=== PATIENT | male | born 1995 | race Caucasian/White ===

== ENCOUNTER 2016-11-04 08:38 | Emergency (ER) | payer OTHER ==
[2016-11-04] MEDS ORDERED: KETOROLAC 30 MG/ML VIAL (J1885) As Ordered ONE (09:09)
--- NOTE | 2016-11-04 10:35 | EDDOCDS ---
Physician Documentation [facility] Name: Tariq Diamond Age: 21 yrs Sex: Male : 1995 Arrival Date: 11/04/2016 Time: 08:38 Bed U3 Private MD: Disposition: 11/04 09:57 Critical Care: Critical care not applicable. pc Disposition: 11/04/16 09:59 Discharged to Home/Self Care. Impression: Opioid abuse, Other stimulant abuse, Dental caries - with pain. - Condition is Stable. - Discharge Instructions: Dental Pain. - Prescriptions for ketorolac 10 mg Oral Tablet - take 1 tablet by ORAL route every 6 hours As needed MDD- 40mg. Up to 5 days total use.; 20 tablet. - Medication Reconciliation, Local Pharmacy Hours form. - Follow up: Referral list, As provided by PFS; When: Call to arrange an appointment; Reason: To establish care. Follow up: Your, Dentist; When: Call to arrange an appointment; Reason: Recheck today's complaints. - Problem is an ongoing problem. - Symptoms have improved. HPI: 09:08 This 21 yrs old Male presents to ER via Walkin/Carried/Asstd with complaints pc of Psych Problem. 09:08 The history is obtained from the patient. He has right sided dental pain for 2-3 weeks, pc worse since last night. He is an admitted heroin and "florin" abuser, last used last night. He told triage that he'd kill himself if he didn't get relief for his dental pain. He denies any SI or HI, simply states he can't deal with the dental pain. He has not seen a dentist in many years. The patient has not recently seen a physician. Historical: - Allergies: No known drug Allergies; - Home Meds: 1. none - PMHx: Substance Abuse; - PSHx: none; - The history from nurses notes was reviewed: and I agree with what is documented. - Social history: Smoking status: Patient uses tobacco products, heavy tobacco smoker. No barriers to communication noted, The patient speaks fluent Kinyarwanda. - : The pt / caregiver states he / she is not on anticoagulants. Home medication list is obtained from the patient. - Hospitalizations: : No recent hospitalization is reported. - Exposure Risk Screening:: None identified. - Immunization history:: All immunizations up-to-date. - Family history: Not pertinent. - Social history:: the patient smokes cigarettes the patient drinks alcohol, the patient uses illicit drugs, including heroin, opiates, amphetamines . ROS: 09:08 All systems are negative except as listed. pc Exam: 09:08 General Appearance: no acute distress, alert, lying on right side, resting. Requests pc cold drink of water upon my entering room. 09:08 EENT: normal eye inspection, ears, nose and throat normal, dental exam: multiple fillings noted. No gingival edema or erythema noted. Pain on percussion of left lower and upper molars without dental fractures or decay noted. 09:08 Psych: normal mood, affect is appropriate. Vital Signs: 08:55 BP 156 / 97; Pulse 94; Resp 18; Temp 98.6(T); Pulse Ox 97% on R/A; Weight 68.04 kg / dpm 150 lbs (R); Height 6 ft. 0 in. (182.88 cm) (R); Pain 10/10; 08:55 Body Mass Index 20.34 (68.04 kg, 182.88 cm) dpm MDM: 09:08 ketorolac 60 mg IM once ordered. pc 09:13 Differential Diagnosis: dental pain; polysubstance abuse. Plan: meds, PFS eval. pc 09:39 Financial registration complete. lg 09:57 Data reviewed: old medical records, vital signs, nurses notes. Test interpretation: pc none. The patient has been re-examined and re-evaluated. The patient's symptoms have mildly improved after treatment. Disposition: The historical points, examination findings, and any diagnostic results supporting the provided diagnosis, were discussed with the patient or legal guardian. The need for outpatient follow up with the provider listed on their discharge instructions was discussed. They were encouraged to return to [facility], or the nearest ED, if symptoms worsen/persist, or for any other questions/concerns. 09:57 Other consultation: The ED new car make ready worker was notified and will evaluate the patient. pc 09:59 PSA Outpatient Referrals was scanned into [employer] and attached to record. rb Administered Medications: 09:19 Drug: ketorolac 60 mg [ketorolac 30 mg/mL (1 mL) injection solution (2 mL)] Route: IM; ml6 Site: right gluteus; 10:33 Follow up: Response: Pain is decreased ml6 Signatures: Diogo Mcwilliams MD MD pc Sleeman, Kacey, RN RN kcs Oly Patel, PSA PSA rb Rosy Obrien, Osito Reg Shiv Frank RN RN ml6 The chart was reviewed and I authenticate all verbal orders and agree with the evaluation and treatment provided.Corrections: (The following items were deleted from the chart) 09:45 08:49 PMHx: none; edgard ml6 MTDD
--- NOTE | 2016-11-04 10:35 | EDDOCDS ---
Nurse's Notes [facility] Name: Tariq Diamond Age: 21 yrs Sex: Male : 1995 Arrival Date: 11/04/2016 Time: 08:[address] MD: Diagnosis: Opioid abuse;Other stimulant abuse;Dental caries-with pain Presentation: 11/04 08:46 Presenting complaint: Patient states: he is "really dope sick and if he doesn't get any kcs help he will kill himself. "I need some oragel for this fucking toothache" - explained the doctor would order meds and then states 'you need to give me something for this fucking toothache for comfort" - explained again that the doctor would order the meds. Mental Health Triage Level: Level 2: The patient displays active suicidal ideations. Adult Sepsis Screening: The patient does not have new or worsening altered mentation. Patient's respiratory rate is less than 22. Systolic blood pressure is greater than 100. Patient has a qSOFA score of 0- Negative Sepsis Screen. Suicide/Homicide risk assessment- The patient admits to and/or has been reported to be having suicidal ideations. The patient reports that he/she has not been admitted to an inpatient mental health facility in the last 30 days. The patient reports that he/she has a recent or current history of substance abuse. The patient reports that he/she has no prior history of suicide attempt and/or organized plan. The patient reports that he/she has experienced a significant life altering event in the last 30 days. The patient reports that he/she lacks adequate social support. The patient reports he/she has no significant chronic medical condition(s). Status: Patient is not a marine services technician or dependent. Transition of care: patient was not received from another setting of care. Red Flag criteria, patient assessed and taken directly to a bed. 08:46 Acuity: LINDSEY Level 3 kcs 08:46 Method Of Arrival: Walkin/Carried/Asstd kcs Triage Assessment: 08:49 General: Appears slender, unkempt, well developed, well nourished, Behavior is kcs agitated, anxious, restless. Pain: Location: mouth Pain currently is 10 out of 10 on a pain scale. Pt Declines HIV testing. The patient is triaged at the bedside. See Assessment in Nurses Notes section of ED record. Neurological: Level of Consciousness is awake, alert. Respiratory: Airway is patent Respiratory effort is even, unlabored, Respiratory pattern is regular, symmetrical. Derm: Skin is intact, is healthy with good turgor, Skin is dry, Skin is normal. Historical: - Allergies: No known drug Allergies; - Home Meds: 1. none - PMHx: Substance Abuse; - PSHx: none; - The history from nurses notes was reviewed: and I agree with what is documented. - Social history: Smoking status: Patient uses tobacco products, heavy tobacco smoker. No barriers to communication noted, The patient speaks fluent Romansh. - : The pt / caregiver states he / she is not on anticoagulants. Home medication list is obtained from the patient. - Hospitalizations: : No recent hospitalization is reported. - Exposure Risk Screening:: None identified. - Immunization history:: All immunizations up-to-date. - Family history: Not pertinent. - Social history:: the patient smokes cigarettes the patient drinks alcohol, the patient uses illicit drugs, including heroin, opiates, amphetamines . Screenin:45 Screening information is obtained from the patient. Fall risk: No risks identified. ml6 Assistance ADL's: requires no assistance with activities of daily living. Abuse/DV Screen: The patient / caregiver reports he/she is: not in a situation that causes fear, pain or injury. Nutritional screening: No deficits noted. Advance Directives: Currently, there is no health care proxy. home support is adequate. Assessment: 08:48 General: Appears Behavior is anxious, appropriate for age. General: patient has large ml6 amount of scaring from IV drug use down both forearms. Pain: Location: mouth Pain currently is 10 out of 10 on a pain scale. Pain does not radiate. Quality of pain is described as aching, Pain began 2-3 days ago Is continuous Alleviated by nothing. Aggravated by increased activity. Cardiovascular: No deficits noted. Capillary refill < 3 seconds is brisk in bilateral fingers toes Heart tones S1 S2 present Edema is absent. Pulses are all present. Respiratory: No deficits noted. Airway is patent Respiratory effort is even, unlabored. GI: No deficits noted. Abdomen is flat, non- distended Bowel sounds present X 4 quads. 09:45 Reassessment: Patient appears in no apparent distress at this time. Patient denies pain ml6 at this time. Patient states feeling better. Patient states symptoms have improved. 10:31 General: Appears in no apparent distress, Behavior is appropriate for age, cooperative. ml6 Pain: Denies pain. Neurological: No deficits noted. Level of Consciousness is awake, alert, Oriented to person, place, time. Cardiovascular: No deficits noted. Capillary refill < 3 seconds is brisk in bilateral fingers toes Heart tones S1 S2 present. Respiratory: No deficits noted. Airway is patent Respiratory effort is even, unlabored, Respiratory pattern is regular, symmetrical. GI: No deficits noted. Abdomen is flat, non- distended Bowel sounds present X 4 quads. Social Work Consult: 10:02 Social Work Note: Pt presented to Ed looking for detox and had tooth pain. Pt reported rb "I'm an addict", clean for 8 months , using Meth, Heroin, Jeannie, etc. over the last couple months. Pt denies SI/HI at this time. Pt has no prior MH hx. Pt stated was in rehab \\\\ [facility] 03/30/16, and went to [facility] outpt . Pt reported plans to return to [facility]. Pt lives with Roommates. Gave referrals for Dental and Substance abuse. Pt happy with referrals. No further interventions needed at this time. Vital Signs: 08:55 BP 156 / 97; Pulse 94; Resp 18; Temp 98.6(T); Pulse Ox 97% on R/A; Weight 68.04 kg (R); dpm Height 6 ft. 0 in. (182.88 cm) (R); Pain 10/10; 08:55 Body Mass Index 20.34 (68.04 kg, 182.88 cm) dpm Vitals: 08:49 Log In Time: November 04, 2016 at 08:38. kcs ED Course: 08:40 Patient visited by Rosy Obrien Reg. lg 08:40 Patient moved to Waiting lg 08:42 Patient moved to [facility] dpm 08:49 Triage Initiated kcs 08:50 Pt greeted and oriented to ED. Patient advised of names of staff involved in care, dpm location of call sharif, wait times and NPO status. Patient has correct armband on for positive identification. Placed in gown. Placed in psych safe attire. Security observing. Property removed, inventory done, secured in belongings bag- placed in locked locker. Placed in locker 3. Psych Safety Check: Location: Psych Room. Visual Assessment: Cooperative. 08:51 Diogo Mcwilliams MD is Attending Physician. pc 08:53 Patient insulin needle in patient's possession disposed of. kcs 08:54 Patient visited by Hernandez Goncalves. dpm 09:08 Patient visited by Diogo Mcwilliams MD. pc 09:28 Patient visited by Hernandez Goncalves. dpm 09:45 Patient visited by Hernandez Goncalves. dpm 09:45 The patient / caregiver is instructed regarding the plan of care and ED course. ml6 09:59 Referral list, As provided by PFS is Referral Physician. pc 09:59 Your, Dentist is Referral Physician. pc 09:59 PSA Outpatient Referrals was scanned into [employer] and attached to record. rb 10:22 Patient visited by Hernandez Goncalves. dpm 10:32 No IV's were initiated during this patient's visit. No procedures done that require ml6 assistance. Administered Medications: 09:19 Drug: ketorolac 60 mg [ketorolac 30 mg/mL (1 mL) injection solution (2 mL)] Route: IM; ml6 Site: right gluteus; 10:33 Follow up: Response: Pain is decreased ml6 Order Results: There are currently no results for this order. Outcome: 09:59 Discharge ordered by Provider. pc 10:32 Discharge Assessment: patient administered narcotics - no. The following High Risk ml6 Discharge criteria are identified: None. Discharged to home ambulatory. Condition: improved. Discharge instructions given to patient, Instructed on discharge instructions, follow up and referral plans. medication usage, Demonstrated understanding of instructions, medications, Pt was receptive of discharge instructions/ teaching. Prescriptions given X 1. No special radiology studies were completed. 10:33 Patient left the ED. ml6 Signatures: Diogo Mcwilliams MD MD pc Sleeman, Kacey, RN RN kcs Oly Patel, PSA PSA rb Rosy Obrien, Reg Reg Shiv Frank RN RN ml6 Hernandez Goncalves dpm Corrections: (The following items were deleted from the chart) 09:45 08:49 PMHx: none; edgard ml6 MTDD
--- NOTE | 2016-11-06 11:34 | EDDOCDS ---
Nurse's Notes [facility] Name: Tariq Diamond Age: 21 yrs Sex: Male : 1995 Arrival Date: 11/04/2016 Time: 08:[address] MD: Diagnosis: Opioid abuse;Other stimulant abuse;Dental caries-with pain Presentation: 11/04 08:46 Presenting complaint: Patient states: he is "really dope sick and if he doesn't get any kcs help he will kill himself. "I need some oragel for this fucking toothache" - explained the doctor would order meds and then states 'you need to give me something for this fucking toothache for comfort" - explained again that the doctor would order the meds. Mental Health Triage Level: Level 2: The patient displays active suicidal ideations. Adult Sepsis Screening: The patient does not have new or worsening altered mentation. Patient's respiratory rate is less than 22. Systolic blood pressure is greater than 100. Patient has a qSOFA score of 0- Negative Sepsis Screen. Suicide/Homicide risk assessment- The patient admits to and/or has been reported to be having suicidal ideations. The patient reports that he/she has not been admitted to an inpatient mental health facility in the last 30 days. The patient reports that he/she has a recent or current history of substance abuse. The patient reports that he/she has no prior history of suicide attempt and/or organized plan. The patient reports that he/she has experienced a significant life altering event in the last 30 days. The patient reports that he/she lacks adequate social support. The patient reports he/she has no significant chronic medical condition(s). Status: Patient is not a it service continuity supervisor or dependent. Transition of care: patient was not received from another setting of care. Red Flag criteria, patient assessed and taken directly to a bed. 08:46 Acuity: LINDSEY Level 3 kcs 08:46 Method Of Arrival: Walkin/Carried/Asstd kcs Triage Assessment: 08:49 General: Appears slender, unkempt, well developed, well nourished, Behavior is kcs agitated, anxious, restless. Pain: Location: mouth Pain currently is 10 out of 10 on a pain scale. Pt Declines HIV testing. The patient is triaged at the bedside. See Assessment in Nurses Notes section of ED record. Neurological: Level of Consciousness is awake, alert. Respiratory: Airway is patent Respiratory effort is even, unlabored, Respiratory pattern is regular, symmetrical. Derm: Skin is intact, is healthy with good turgor, Skin is dry, Skin is normal. Historical: - Allergies: No known drug Allergies; - Home Meds: 1. none - PMHx: Substance Abuse; - PSHx: none; - The history from nurses notes was reviewed: and I agree with what is documented. - Social history: Smoking status: Patient uses tobacco products, heavy tobacco smoker. No barriers to communication noted, The patient speaks fluent Divehi. - : The pt / caregiver states he / she is not on anticoagulants. Home medication list is obtained from the patient. - Hospitalizations: : No recent hospitalization is reported. - Exposure Risk Screening:: None identified. - Immunization history:: All immunizations up-to-date. - Family history: Not pertinent. - Social history:: the patient smokes cigarettes the patient drinks alcohol, the patient uses illicit drugs, including heroin, opiates, amphetamines . Screenin:45 Screening information is obtained from the patient. Fall risk: No risks identified. ml6 Assistance ADL's: requires no assistance with activities of daily living. Abuse/DV Screen: The patient / caregiver reports he/she is: not in a situation that causes fear, pain or injury. Nutritional screening: No deficits noted. Advance Directives: Currently, there is no health care proxy. home support is adequate. Assessment: 08:48 General: Appears Behavior is anxious, appropriate for age. General: patient has large ml6 amount of scaring from IV drug use down both forearms. Pain: Location: mouth Pain currently is 10 out of 10 on a pain scale. Pain does not radiate. Quality of pain is described as aching, Pain began 2-3 days ago Is continuous Alleviated by nothing. Aggravated by increased activity. Cardiovascular: No deficits noted. Capillary refill < 3 seconds is brisk in bilateral fingers toes Heart tones S1 S2 present Edema is absent. Pulses are all present. Respiratory: No deficits noted. Airway is patent Respiratory effort is even, unlabored. GI: No deficits noted. Abdomen is flat, non- distended Bowel sounds present X 4 quads. 09:45 Reassessment: Patient appears in no apparent distress at this time. Patient denies pain ml6 at this time. Patient states feeling better. Patient states symptoms have improved. 10:31 General: Appears in no apparent distress, Behavior is appropriate for age, cooperative. ml6 Pain: Denies pain. Neurological: No deficits noted. Level of Consciousness is awake, alert, Oriented to person, place, time. Cardiovascular: No deficits noted. Capillary refill < 3 seconds is brisk in bilateral fingers toes Heart tones S1 S2 present. Respiratory: No deficits noted. Airway is patent Respiratory effort is even, unlabored, Respiratory pattern is regular, symmetrical. GI: No deficits noted. Abdomen is flat, non- distended Bowel sounds present X 4 quads. Social Work Consult: 10:02 Social Work Note: Pt presented to Ed looking for detox and had tooth pain. Pt reported rb "I'm an addict", clean for 8 months , using Meth, Heroin, Jeannie, etc. over the last couple months. Pt denies SI/HI at this time. Pt has no prior MH hx. Pt stated was in rehab \\\\ [facility] 03/30/16, and went to [facility] outpt . Pt reported plans to return to [facility]. Pt lives with Roommates. Gave referrals for Dental and Substance abuse. Pt happy with referrals. No further interventions needed at this time. Vital Signs: 08:55 BP 156 / 97; Pulse 94; Resp 18; Temp 98.6(T); Pulse Ox 97% on R/A; Weight 68.04 kg (R); dpm Height 6 ft. 0 in. (182.88 cm) (R); Pain 10/10; 08:55 Body Mass Index 20.34 (68.04 kg, 182.88 cm) dpm Vitals: 08:49 Log In Time: November 04, 2016 at 08:38. kcs ED Course: 08:40 Patient visited by Rosy Obrien Reg. lg 08:40 Patient moved to Waiting lg 08:42 Patient moved to [facility] dpm 08:49 Triage Initiated kcs 08:50 Pt greeted and oriented to ED. Patient advised of names of staff involved in care, dpm location of call sharif, wait times and NPO status. Patient has correct armband on for positive identification. Placed in gown. Placed in psych safe attire. Security observing. Property removed, inventory done, secured in belongings bag- placed in locked locker. Placed in locker 3. Psych Safety Check: Location: Psych Room. Visual Assessment: Cooperative. 08:51 Diogo Mcwilliams MD is Attending Physician. pc 08:53 Patient insulin needle in patient's possession disposed of. kcs 08:54 Patient visited by Hernandez Goncalves. dpm 09:08 Patient visited by Diogo Mcwilliams MD. pc 09:28 Patient visited by Hernandez Goncalves. dpm 09:45 Patient visited by Hernandez Goncalves. dpm 09:45 The patient / caregiver is instructed regarding the plan of care and ED course. ml6 09:59 Referral list, As provided by PFS is Referral Physician. pc 09:59 Your, Dentist is Referral Physician. pc 09:59 PSA Outpatient Referrals was scanned into [employer] and attached to record. rb 10:22 Patient visited by Hernandez Goncalves. dpm 10:32 No IV's were initiated during this patient's visit. No procedures done that require ml6 assistance. 10:52 [facility] Payment Agreement was scanned into [employer] and attached to record. lg Administered Medications: 09:19 Drug: ketorolac 60 mg [ketorolac 30 mg/mL (1 mL) injection solution (2 mL)] Route: IM; ml6 Site: right gluteus; 10:33 Follow up: Response: Pain is decreased ml6 Order Results: There are currently no results for this order. Outcome: 09:59 Discharge ordered by Provider. pc 10:32 Discharge Assessment: patient administered narcotics - no. The following High Risk ml6 Discharge criteria are identified: None. Discharged to home ambulatory. Condition: improved. Discharge instructions given to patient, Instructed on discharge instructions, follow up and referral plans. medication usage, Demonstrated understanding of instructions, medications, Pt was receptive of discharge instructions/ teaching. Prescriptions given X 1. No special radiology studies were completed. 10:33 Patient left the ED. ml6 Signatures: Diogo Mcwilliams MD MD pc Sleeman, Kacey, RN RN kcs Patel, Oly, PSA PSA rb Rosy Obrien, Reg Reg lg Shiv Barksdale RN RN ml6 Hernandez Goncalves dpm Corrections: (The following items were deleted from the chart) 09:45 08:49 PMHx: none; kcs ml6 Chart Complete MTDD
--- NOTE | 2016-11-06 11:34 | EDDOCDS ---
Physician Documentation [facility] Name: Tariq Diamond Age: 21 yrs Sex: Male : 1995 Arrival Date: 11/04/2016 Time: 08:38 Bed U3 Private MD: Disposition: 11/04 09:57 Critical Care: Critical care not applicable. pc Disposition: 11/04/16 09:59 Discharged to Home/Self Care. Impression: Opioid abuse, Other stimulant abuse, Dental caries - with pain. - Condition is Stable. - Discharge Instructions: Dental Pain. - Prescriptions for ketorolac 10 mg Oral Tablet - take 1 tablet by ORAL route every 6 hours As needed MDD- 40mg. Up to 5 days total use.; 20 tablet. - Medication Reconciliation, Local Pharmacy Hours form. - Follow up: Referral list, As provided by PFS; When: Call to arrange an appointment; Reason: To establish care. Follow up: Your, Dentist; When: Call to arrange an appointment; Reason: Recheck today's complaints. - Problem is an ongoing problem. - Symptoms have improved. HPI: 09:08 This 21 yrs old Male presents to ER via Walkin/Carried/Asstd with complaints pc of Psych Problem. 09:08 The history is obtained from the patient. He has right sided dental pain for 2-3 weeks, pc worse since last night. He is an admitted heroin and "florin" abuser, last used last night. He told triage that he'd kill himself if he didn't get relief for his dental pain. He denies any SI or HI, simply states he can't deal with the dental pain. He has not seen a dentist in many years. The patient has not recently seen a physician. Historical: - Allergies: No known drug Allergies; - Home Meds: 1. none - PMHx: Substance Abuse; - PSHx: none; - The history from nurses notes was reviewed: and I agree with what is documented. - Social history: Smoking status: Patient uses tobacco products, heavy tobacco smoker. No barriers to communication noted, The patient speaks fluent Bulgarian. - : The pt / caregiver states he / she is not on anticoagulants. Home medication list is obtained from the patient. - Hospitalizations: : No recent hospitalization is reported. - Exposure Risk Screening:: None identified. - Immunization history:: All immunizations up-to-date. - Family history: Not pertinent. - Social history:: the patient smokes cigarettes the patient drinks alcohol, the patient uses illicit drugs, including heroin, opiates, amphetamines . ROS: 09:08 All systems are negative except as listed. pc Exam: 09:08 General Appearance: no acute distress, alert, lying on right side, resting. Requests pc cold drink of water upon my entering room. 09:08 EENT: normal eye inspection, ears, nose and throat normal, dental exam: multiple fillings noted. No gingival edema or erythema noted. Pain on percussion of left lower and upper molars without dental fractures or decay noted. 09:08 Psych: normal mood, affect is appropriate. Vital Signs: 08:55 BP 156 / 97; Pulse 94; Resp 18; Temp 98.6(T); Pulse Ox 97% on R/A; Weight 68.04 kg / dpm 150 lbs (R); Height 6 ft. 0 in. (182.88 cm) (R); Pain 10/10; 08:55 Body Mass Index 20.34 (68.04 kg, 182.88 cm) dpm MDM: 09:08 ketorolac 60 mg IM once ordered. pc 09:13 Differential Diagnosis: dental pain; polysubstance abuse. Plan: meds, PFS eval. pc 09:39 Financial registration complete. lg 09:57 Data reviewed: old medical records, vital signs, nurses notes. Test interpretation: pc none. The patient has been re-examined and re-evaluated. The patient's symptoms have mildly improved after treatment. Disposition: The historical points, examination findings, and any diagnostic results supporting the provided diagnosis, were discussed with the patient or legal guardian. The need for outpatient follow up with the provider listed on their discharge instructions was discussed. They were encouraged to return to [facility], or the nearest ED, if symptoms worsen/persist, or for any other questions/concerns. 09:57 Other consultation: The ED pest control worker was notified and will evaluate the patient. pc 09:59 PSA Outpatient Referrals was scanned into [employer] and attached to record. rb 10:52 [facility] Payment Agreement was scanned into [employer] and attached to record. lg Administered Medications: 09:19 Drug: ketorolac 60 mg [ketorolac 30 mg/mL (1 mL) injection solution (2 mL)] Route: IM; ml6 Site: right gluteus; 10:33 Follow up: Response: Pain is decreased ml6 Signatures: Diogo Mcwilliams MD MD pc Sleeman, Kacey RN RN kcs Oly Patel, PSA PSA rb Rosy Obrien, Reg Reg lg Shiv Barksdale RN RN ml6 The chart was reviewed and I authenticate all verbal orders and agree with the evaluation and treatment provided.Corrections: (The following items were deleted from the chart) 09:45 08:49 PMHx: none; edgard ml6 Attachments: 10:52 [facility] Payment Agreement lg Chart Complete MTDD
--- NOTE | 2016-11-06 11:34 | EDDOCDS ---
Physician Documentation [facility] Name: Tariq Diamond Age: 21 yrs Sex: Male : 1995 Arrival Date: 11/04/2016 Time: 08:38 Bed U3 Private MD: Disposition: 11/04 09:57 Critical Care: Critical care not applicable. pc Disposition: 11/04/16 09:59 Discharged to Home/Self Care. Impression: Opioid abuse, Other stimulant abuse, Dental caries - with pain. - Condition is Stable. - Discharge Instructions: Dental Pain. - Prescriptions for ketorolac 10 mg Oral Tablet - take 1 tablet by ORAL route every 6 hours As needed MDD- 40mg. Up to 5 days total use.; 20 tablet. - Medication Reconciliation, Local Pharmacy Hours form. - Follow up: Referral list, As provided by PFS; When: Call to arrange an appointment; Reason: To establish care. Follow up: Your, Dentist; When: Call to arrange an appointment; Reason: Recheck today's complaints. - Problem is an ongoing problem. - Symptoms have improved. HPI: 09:08 This 21 yrs old Male presents to ER via Walkin/Carried/Asstd with complaints pc of Psych Problem. 09:08 The history is obtained from the patient. He has right sided dental pain for 2-3 weeks, pc worse since last night. He is an admitted heroin and "florin" abuser, last used last night. He told triage that he'd kill himself if he didn't get relief for his dental pain. He denies any SI or HI, simply states he can't deal with the dental pain. He has not seen a dentist in many years. The patient has not recently seen a physician. Historical: - Allergies: No known drug Allergies; - Home Meds: 1. none - PMHx: Substance Abuse; - PSHx: none; - The history from nurses notes was reviewed: and I agree with what is documented. - Social history: Smoking status: Patient uses tobacco products, heavy tobacco smoker. No barriers to communication noted, The patient speaks fluent Azeri. - : The pt / caregiver states he / she is not on anticoagulants. Home medication list is obtained from the patient. - Hospitalizations: : No recent hospitalization is reported. - Exposure Risk Screening:: None identified. - Immunization history:: All immunizations up-to-date. - Family history: Not pertinent. - Social history:: the patient smokes cigarettes the patient drinks alcohol, the patient uses illicit drugs, including heroin, opiates, amphetamines . ROS: 09:08 All systems are negative except as listed. pc Exam: 09:08 General Appearance: no acute distress, alert, lying on right side, resting. Requests pc cold drink of water upon my entering room. 09:08 EENT: normal eye inspection, ears, nose and throat normal, dental exam: multiple fillings noted. No gingival edema or erythema noted. Pain on percussion of left lower and upper molars without dental fractures or decay noted. 09:08 Psych: normal mood, affect is appropriate. Vital Signs: 08:55 BP 156 / 97; Pulse 94; Resp 18; Temp 98.6(T); Pulse Ox 97% on R/A; Weight 68.04 kg / dpm 150 lbs (R); Height 6 ft. 0 in. (182.88 cm) (R); Pain 10/10; 08:55 Body Mass Index 20.34 (68.04 kg, 182.88 cm) dpm MDM: 09:08 ketorolac 60 mg IM once ordered. pc 09:13 Differential Diagnosis: dental pain; polysubstance abuse. Plan: meds, PFS eval. pc 09:39 Financial registration complete. lg 09:57 Data reviewed: old medical records, vital signs, nurses notes. Test interpretation: pc none. The patient has been re-examined and re-evaluated. The patient's symptoms have mildly improved after treatment. Disposition: The historical points, examination findings, and any diagnostic results supporting the provided diagnosis, were discussed with the patient or legal guardian. The need for outpatient follow up with the provider listed on their discharge instructions was discussed. They were encouraged to return to [facility], or the nearest ED, if symptoms worsen/persist, or for any other questions/concerns. 09:57 Other consultation: The ED calender worker helper was notified and will evaluate the patient. pc 09:59 PSA Outpatient Referrals was scanned into [employer] and attached to record. rb 10:52 [facility] Payment Agreement was scanned into [employer] and attached to record. lg Administered Medications: 09:19 Drug: ketorolac 60 mg [ketorolac 30 mg/mL (1 mL) injection solution (2 mL)] Route: IM; ml6 Site: right gluteus; 10:33 Follow up: Response: Pain is decreased ml6 Signatures: Diogo Mcwilliams MD MD pc Sleeman, Kacey RN RN kcs Oly Patel, PSA PSA rb Rosy Obrien, Reg Reg lg Shiv Barksdale RN RN ml6 The chart was reviewed and I authenticate all verbal orders and agree with the evaluation and treatment provided.Corrections: (The following items were deleted from the chart) 09:45 08:49 PMHx: none; edgard ml6 Attachments: 10:52 [facility] Payment Agreement lg Chart Complete MTDD
== END 2016-11-04 10:33 | disposition home or self-care (01) ==
LOC: M ED 08:38
DX: F11.10 Opioid abuse, uncomplicated (principal); F15.10 Other stimulant abuse, uncomplicated; K02.9 Dental caries, unspecified; F17.210 Nicotine dependence, cigarettes, uncomplicated
CPT/HCPCS: 96372; 99284; J1885

== ENCOUNTER → 2017-02-07 | Outpatient (CLI) | payer OTHER ==
[2017-02-07 18:57] LABS: MEAN CORPUSCULAR HGB CONC 33.7 g/dl (32.0-36.5); MEAN CORPUSCULAR VOLUME 94.9 fl (80.0-96.0); RED CELL DISTRIBUTION WIDTH 12.2 % (11.5-14.5); WHITE BLOOD COUNT 6.7 K/mm3 (4.0-10.0)
[2017-02-07 19:46] LABS: ALBUMIN 3.5 GM/DL (3.2-5.2); ALBUMIN/GLOBULIN RATIO 1.09 (1.00-1.93); ALKALINE PHOSPHATASE 135 U/L (45-117); ALT/SGPT 333 U/L (12-78); ANION GAP 8 MEQ/L (8-16); AST/SGOT 158 U/L (15-37); BILIRUBIN,TOTAL 0.3 MG/DL (0.2-1.0); BLOOD UREA NITROGEN 15 MG/DL (7-18); CALCIUM LEVEL 8.8 MG/DL (8.5-10.1); CARBON DIOXIDE LEVEL 29 MEQ/L (21-32); CHLORIDE LEVEL 105 MEQ/L (98-107); CREATININE FOR GFR 0.92 MG/DL (0.70-1.30); GLOMERULAR FILTRATION RATE > 60.0 (>60); GLUCOSE, FASTING 84 MG/DL (70-105); POTASSIUM SERUM 4.2 MEQ/L (3.5-5.1); SODIUM LEVEL 142 MEQ/L (136-145); TOTAL PROTEIN 6.7 GM/DL (6.4-8.2)
== END ==
LOC: M LAB 18:20
PROVIDERS: ATTEND Nurse Practitioner Family
DX: Z02.89 Encounter for other administrative examinations (principal)

== ENCOUNTER → 2017-02-26 | Outpatient (CLI) | payer OTHER ==
[2017-02-28 10:25] LABS: HEPATITIS B SURFACE ANTIBODY NEGATIVE (POSITIVE)
== END ==
LOC: M LAB 14:41
PROVIDERS: ATTEND Internal Medicine Cardiovascular Disease
DX: B18.2 Chronic viral hepatitis C (principal); B16.9 Acute hepatitis B without delta-agent and without hepatic coma; B15.9 Hepatitis A without hepatic coma

== ENCOUNTER 2017-05-23 21:10 | Emergency (ER) | payer OTHER ==
[~2017-05-23] VITALS: Ht 182.9 cm; Wt 73.6 kg
[2017-05-23] MEDS ORDERED: NARC1SPR (21:22)
[2017-05-23] MEDS ORDERED: SUBO2MIS (21:22)
[2017-05-23] MEDS ORDERED: KETO10TAB PO (22:21)
[2017-05-23] MEDS ORDERED: CLEO150C PO (22:21)
[2017-05-23] MEDS ORDERED: KETOROLAC 60 MG/2 ML VIAL (J1885) IM ONE (22:30)
[2017-05-23 23:18] VITALS: BP 125/61
== END 2017-05-23 23:19 | disposition home or self-care (01) ==
LOC: M ED 21:10
DX: S29.012A Strain of muscle and tendon of back wall of thorax, initial encounter (principal); X50.9XXA Other and unspecified overexertion or strenuous movements or postures, initial encounter; Y92.39 Other specified sports and athletic area as the place of occurrence of the external cause; Y93.89 Activity, other specified; Y99.8 Other external cause status; K02.9 Dental caries, unspecified; F19.20 Other psychoactive substance dependence, uncomplicated; Z79.891 Long term (current) use of opiate analgesic
CPT/HCPCS: 96372; 99282; J1885

== ENCOUNTER 2017-06-09 03:13 | Emergency (ER) | payer OTHER ==
[~2017-06-09 03:13] MED LIST: CLEO150C PO; KETO10TAB PO; NARC1SPR; SUBO2MIS
[2017-06-09 03:17] VITALS: BP 130/69
[2017-06-09] MEDS ORDERED: ACETAMINOPHEN 325 MG TAB PO ONE (03:45)
--- NOTE | 2017-06-10 16:08 | REP ---
Right hand four views: There is a boxer's fracture of the fifth digit metacarpal. There is no dislocation. No other fractures are identified. Mineralization joint spaces are otherwise normal Signed by Oh Campa MD 06/09/2017 07:41 A
== END 2017-06-09 03:55 | disposition home or self-care (01) ==
LOC: M ED 03:13
DX: S62.306A Unspecified fracture of fifth metacarpal bone, right hand, initial encounter for closed fracture (principal); W22.8XXA Striking against or struck by other objects, initial encounter; Y92.019 Unspecified place in single-family (private) house as the place of occurrence of the external cause; Y93.89 Activity, other specified; Y99.8 Other external cause status; F19.21 Other psychoactive substance dependence, in remission; F17.200 Nicotine dependence, unspecified, uncomplicated; Z79.899 Other long term (current) drug therapy

== ENCOUNTER 2017-06-25 14:09 | Emergency (ER) | payer OTHER ==
[~2017-06-25] VITALS: Ht 182.9 cm; Wt 72.7 kg
--- NOTE | 2017-06-25 16:47 | REP ---
Clinical: Left inguinal and scrotal pain. Technique: Gutierrez scale and color Doppler evaluation using linear and curved array transducer with color Doppler evaluation. Findings: The testicles and epididymi are relatively normal in contour, size, echogenicity, vascularity and overall appearance. There is no evidence for intratesticular mass lesion, infectious/inflammatory process, with torsion. No obvious hydroceles or varicoceles are identified. Right testicle measures 4.8 x 2.5 x 3.3 cm. Left testicle measures 4.8 x 2.3 x 3.0 cm. Impression: Normal scrotal ultrasound. Signed by Adriel Meadows MD 06/25/2017 04:38 P
--- NOTE | 2017-06-25 16:49 | REP ---
Clinical: Left inguinal pain and swelling. Technique: Real time crowe scale and color evaluation using linear high frequency transducer. Findings: Directed ultrasound examination of the left groin and inguinal region demonstrates few lymph nodes measuring up to 1.6 cm. No hernia appreciated. Impression: Left inguinal lymph nodes up to 16 mm. No hernia. Signed by Adriel Meadows MD 06/25/2017 04:40 P
[2017-06-25] MEDS ORDERED: IBUP-1022 PO (17:09)
[2017-06-25 17:22] VITALS: BP 120/72
== END 2017-06-25 17:23 | disposition home or self-care (01) ==
LOC: M ED 14:09
DX: R59.0 Localized enlarged lymph nodes (principal); F17.210 Nicotine dependence, cigarettes, uncomplicated; F11.20 Opioid dependence, uncomplicated

== ENCOUNTER → 2017-07-05 | Outpatient (CLI) | payer MEDICAID ==
[~2017-07-05] MED LIST changes: +IBUP-1022 PO
== END ==
LOC: M OUTALCOH 08:53
PROVIDERS: ATTEND Psychiatry & Neurology Psychiatry
DX: F11.20 Opioid dependence, uncomplicated (principal); F10.10 Alcohol abuse, uncomplicated

== ENCOUNTER 2017-07-21 14:00 | Outpatient (RCR) | payer MEDICAID | END 2017-07-23 | LOC: M OUTALCOH 14:00 | PROVIDERS: ATTEND Psychiatry & Neurology Psychiatry | DX: F11.20 Opioid dependence, uncomplicated (principal); F10.10 Alcohol abuse, uncomplicated ==

== ENCOUNTER → 2017-09-22 | Outpatient (RCR) | payer MEDICAID | LOC: M OUTALCOH 09-08 14:00 | PROVIDERS: ATTEND Psychiatry & Neurology Psychiatry | DX: F10.20 Alcohol dependence, uncomplicated (principal); F12.20 Cannabis dependence, uncomplicated; F17.200 Nicotine dependence, unspecified, uncomplicated ==

== ENCOUNTER 2019-02-17 14:01 | Emergency (ER) | payer MEDICAID, OTHER ==
[~2019-02-17] VITALS: Ht 182.9 cm; Wt 72.7 kg
[2019-02-17 14:02] VITALS: BP 135/82
[2019-02-17] MEDS ORDERED: NAPR-837 PO (14:47)
--- NOTE | 2019-02-17 15:24 | REP ---
RIGHT ANKLE, FOUR VIEWS: HISTORY: Trauma. There is no acute fracture or dislocation. The joint space is normal in appearance. Soft tissue swelling is present. IMPRESSION: There is no acute fracture or dislocation. Electronically Signed by Padilla Norman MD 02/17/2019 03:27 P
== END 2019-02-17 14:54 | disposition home or self-care (01) ==
LOC: M ED 14:01
DX: S93.401A Sprain of unspecified ligament of right ankle, initial encounter (principal); X50.9XXA Other and unspecified overexertion or strenuous movements or postures, initial encounter; Y92.410 Unspecified street and highway as the place of occurrence of the external cause; Y93.51 Activity, roller skating (inline) and skateboarding; Z88.8 Allergy status to other drugs, medicaments and biological substances; F17.210 Nicotine dependence, cigarettes, uncomplicated

== ENCOUNTER 2019-03-02 18:19 | Emergency (ER) | payer MEDICAID ==
[~2019-03-02 18:19] MED LIST changes: +NAPR-837 PO
== END 2019-03-02 18:25 | disposition left against medical advice (07) ==
LOC: M ED 18:19
DX: Z53.21 Procedure and treatment not carried out due to patient leaving prior to being seen by health care provider (principal)

== ENCOUNTER → 2019-07-03 | Outpatient (CLI) | payer OTHER | LOC: M OUTALCOH 11:54 | PROVIDERS: ATTEND Psychiatry & Neurology Psychiatry | DX: F11.20 Opioid dependence, uncomplicated (principal) ==

== ENCOUNTER 2019-07-19 10:00 | Outpatient (RCR) | payer OTHER | END 2019-07-23 | LOC: M OUTALCOH 10:00 | PROVIDERS: ATTEND Psychiatry & Neurology Psychiatry | DX: F11.20 Opioid dependence, uncomplicated (principal); F12.10 Cannabis abuse, uncomplicated; F15.20 Other stimulant dependence, uncomplicated ==

== ENCOUNTER 2019-08-16 09:00 | Outpatient (RCR) | payer OTHER | END 2019-08-23 | LOC: M OUTALCOH 09:00 | PROVIDERS: ATTEND Psychiatry & Neurology Psychiatry | DX: F11.20 Opioid dependence, uncomplicated (principal); F12.10 Cannabis abuse, uncomplicated; F15.20 Other stimulant dependence, uncomplicated ==

== ENCOUNTER → 2019-09-05 | Outpatient (CLI) | payer OTHER | LOC: M OUTALCOH 07:45 | PROVIDERS: ATTEND Psychiatry & Neurology Psychiatry | DX: F11.20 Opioid dependence, uncomplicated (principal) ==

== ENCOUNTER 2019-10-08 08:45 | Outpatient (RCR) | payer OTHER | END 2019-10-23 | LOC: M OUTALCOH 08:45 | PROVIDERS: ATTEND Psychiatry & Neurology Psychiatry | DX: F11.20 Opioid dependence, uncomplicated (principal); F12.10 Cannabis abuse, uncomplicated; F15.20 Other stimulant dependence, uncomplicated ==

== ENCOUNTER 2019-11-12 08:45 | Outpatient (RCR) | payer OTHER | END 2019-11-23 | LOC: M OUTALCOH 08:45 | PROVIDERS: ATTEND Psychiatry & Neurology Psychiatry | DX: F11.20 Opioid dependence, uncomplicated (principal) ==

== ENCOUNTER → 2023-03-15 | Outpatient (CLI) | payer OTHER | LOC: M RAD 10:06 | PROVIDERS: ATTEND Nurse Practitioner Adult Health | DX: B17.10 Acute hepatitis C without hepatic coma (principal) ==

== ENCOUNTER → 2023-04-21 | Outpatient (CLI) | payer OTHER ==
[2023-04-21 16:43] LABS: HEPATITIS B SURFACE ANTIBODY NEGATIVE (POSITIVE)
[2023-04-21 17:07] LABS: HIV 1&2 SCREEN NEGATIVE (NEGATIVE)
[2023-04-26 12:08] LABS: HEPATITIS A IgG TOTAL Positive (Negative); HEPATITIS B CORE ANTIBODY IGG Negative (Negative); HEPATITIS C VIRUS GENOTYPE 3 (.)
== END ==
LOC: M PLALAB 12:06
PROVIDERS: ATTEND Internal Medicine Infectious Disease
DX: B18.2 Chronic viral hepatitis C (principal)

== ENCOUNTER → 2023-08-01 | Outpatient (CLI) | payer OTHER ==
[2023-08-01 14:19] LABS: HEPATITIS B SURFACE ANTIBODY POSITIVE (POSITIVE)
[2023-08-01 14:20] LABS: ALKALINE PHOSPHATASE 89 U/L (46-116); ALT/SGPT 42 U/L (7.0-40); AST/SGOT 25 U/L (<34); BILIRUBIN,DIRECT 0.3 MG/DL (<0.4); BILIRUBIN,TOTAL 0.9 MG/DL (0.3-1.2); TOTAL PROTEIN 6.9 G/DL (5.7-8.2)
[2023-08-02 12:08] LABS: HEPATITIS A IgG TOTAL Positive (Negative); HEPATITIS B CORE ANTIBODY IGG Negative (Negative); HEPATITIS C QUANTITATION HCV Not Detected IU/mL (.)
== END ==
LOC: M PLALAB 11:29
PROVIDERS: ATTEND Internal Medicine Infectious Disease
DX: B18.2 Chronic viral hepatitis C (principal)

== ENCOUNTER → 2023-11-10 | Outpatient (CLI) | payer OTHER ==
[2023-11-10 13:38] LABS: ALBUMIN 4.1 G/DL (3.2-5.2); BILIRUBIN,DIRECT 0.2 MG/DL (<0.4); BILIRUBIN,TOTAL 0.7 MG/DL (0.3-1.2); TOTAL PROTEIN 6.9 G/DL (5.7-8.2)
== END ==
LOC: M PLALAB 10:06
PROVIDERS: ATTEND Internal Medicine Infectious Disease
DX: B18.2 Chronic viral hepatitis C (principal)

== ENCOUNTER → 2024-01-05 | Outpatient (REF) | payer OTHER | LOC: M LAB REF 16:10 | PROVIDERS: ATTEND Physician Assistant | DX: J02.9 Acute pharyngitis, unspecified (principal) ==